=== PATIENT | female | born 1990 | race Hispanic/Latino ===

== ENCOUNTER 2022-02-02 06:55 | Inpatient (IN) | payer MEDICAID, OTHER, SELFPAY ==
[2022-02-02] MEDS ORDERED: Bupivacaine 0.25% HCL 30 ML VIAL ONE (07:00)
[2022-02-02 08:04] VITALS: BMI 30.6
[2022-02-02] MEDS ORDERED: hydrALAZINE 20 MG/ML VIAL SLOW IVP PRN ×3 (08:27→22:12)
[2022-02-02 08:57] LABS: Fetal Membranes Rupture No Membranes Rupture (No Rupture)
[2022-02-02] MEDS: Lactated Ringer's 1,000 ML IV SCH ×2 (10:30→13:49)
[2022-02-02] MEDS ORDERED: Ondansetron PF 4 MG/2 ML Vial IVP PRN ×3 (10:42→22:12)
[2022-02-02] MEDS ORDERED: Promethazine HCl 25 MG/ML VIAL IM PRN ×2 (10:42→15:34)
[2022-02-02] MEDS ORDERED: Lidocaine 1% (PF) 30 ML VIAL SC PRN (10:42)
[2022-02-02] MEDS ORDERED: NS w/ Oxytocin 30 units 500 ML IV SCH ×3 (10:45→22:12)
[2022-02-02 11:21] LABS: Hemoglobin 12.5 g/dL (12.0-15.5); Mean Corpuscular HGB CONC 34.2 g/dL (32.0-36.0); Mean Corpuscular Hemoglobin 30.3 pg (27.0-33.0); Mean Corpuscular Volume 88.6 fl (81.6-98.3); Mean Platelet Volume 13.4 fl (7.4-10.4); Platelet Count 140 10x3/uL (150-450); RBC Distribution Width 13.2 % (11.5-14.5); Red Blood Cell (RBC) Count 4.12 10x6/uL (3.90-5.03); White Blood Cell (WBC) Count 9.6 10x3/uL (3.5-10.5)
[2022-02-02 11:53] LABS: Syphilis Antibody Nonreactive (Nonreactive); Syphilis Antibody Index 0.03 S/CO (<1.00 Non-Reactive)
[2022-02-02 11:54] LABS: Hep B Surf Ag Non-Reactive S/CO (NonReactive)
[2022-02-02 11:58] LABS: HBSAg Index 0.22 S/CO (0-0.99)
[2022-02-02 12:48] LABS: SARS-CoV-2 NAA Rapid Test Not Detected (NotDetected)
[2022-02-02] MEDS ORDERED: Fentanyl 2 mcg/Bup 0.1% Cadd 100 ML ONE (14:09)
[2022-02-02] MEDS ORDERED: ePHEDrine Sulfate 50 MG/10 ML VIAL SLOW IVP PRN (15:34)
[2022-02-02] MEDS ORDERED: Lactated Ringer's 500 ML IV PRN (15:34)
[2022-02-02] MEDS ORDERED: diphenhydrAMINE 50 MG/ML VIAL IVP PRN (15:34)
[2022-02-02] MEDS ORDERED: Naloxone HCl 0.4 mg/ml Vial IVP PRN ×2 (15:34)
[2022-02-02] MEDS ORDERED: Moisturizing Cream (Eucerin) 113 GM JAR TOP PRN (15:34)
[2022-02-02] MEDS ORDERED: Acetaminophen 325 MG TAB PO PRN (15:34)
[2022-02-02] MEDS ORDERED: Communication Order-Pharmacy FS SCH (15:45)
[2022-02-02] MEDS ORDERED: Fentanyl 2 mcg/Bupivacaine 0.1% Cassette 100 ML EPIDURAL SCH (15:45)
[2022-02-02] MEDS ORDERED: Benzocaine-Menthol 82.5 ML CAN TOP PRN (22:12)
[2022-02-02] MEDS ORDERED: Boostrix 0.5 ML (Tdap) VIAL IM ONE (22:12)
[2022-02-02] MEDS ORDERED: Lanolin Ointment 7 GM TUBE TOP PRN (22:12)
[2022-02-02] MEDS ORDERED: Misoprostol 200 MCG TAB VAG PRN (22:12)
[2022-02-02] MEDS ORDERED: Preparation H Ointment 28 GM TUBE PR PRN (22:12)
[2022-02-02] MEDS ORDERED: Milk Of Magnesia 30 ML UDCUP PO PRN (22:12)
[2022-02-02] MEDS: Acetaminophen 325 MG TAB PO SCH (22:12)
[2022-02-02] MEDS ORDERED: Bisacodyl 10 MG SUPP PR PRN (22:12)
[2022-02-02] MEDS ORDERED: Docusate 100 MG CAP PO SCH (22:45)
[2022-02-03] MEDS: Acetaminophen 325 MG TAB PO SCH ×4 (04:47→22:07)
[2022-02-03 04:57] LABS: Hemoglobin 9.8 g/dL (12.0-15.5)
[2022-02-03] MEDS: Docusate 100 MG CAP PO SCH ×2 (09:21→22:07)
[2022-02-03] MEDS: Prenatal Vitamin 1 TAB PO SCH (09:21)
[2022-02-03] MEDS: Ferrous Sulfate 325 MG TAB PO SCH ×2 (09:22→15:51)
[2022-02-04] MEDS: Acetaminophen 325 MG TAB PO SCH ×2 (04:32→10:16)
[2022-02-04 05:07] LABS: Hemoglobin 9.6 g/dL (12.0-15.5); Mean Corpuscular HGB CONC 34.3 g/dL (32.0-36.0); Mean Corpuscular Hemoglobin 31.1 pg (27.0-33.0); Mean Corpuscular Volume 90.6 fl (81.6-98.3); Mean Platelet Volume 13.4 fl (7.4-10.4); Platelet Count 156 10x3/uL (150-450); RBC Distribution Width 13.7 % (11.5-14.5); Red Blood Cell (RBC) Count 3.09 10x6/uL (3.90-5.03)
[2022-02-04 07:23] VITALS: BP 114/73; TEMP 97.6
[2022-02-04] MEDS: Docusate 100 MG CAP PO SCH (09:01)
[2022-02-04] MEDS: Ferrous Sulfate 325 MG TAB PO SCH (09:01)
[2022-02-04] MEDS: Prenatal Vitamin 1 TAB PO SCH (09:01)
== END 2022-02-04 13:17 | disposition home or self-care (01) | DRG 807 ==
LOC: CSHLD/OP 06:55 → CSHLD 11:16 → EDBD 11:16 → CSHPP 23:15
PROVIDERS: ADMIT Obstetrics & Gynecology; ATTEND Obstetrics & Gynecology
PROC: 10E0XZZ Delivery of Products of Conception, External Approach (ICD-10-PCS; principal; 2022-02-02)
PROC: 10907ZC Drainage of Amniotic Fluid, Therapeutic from Products of Conception, Via Natural or Artificial Opening (ICD-10-PCS; 2022-02-02)
PROC: 3E033VJ Introduction of Other Hormone into Peripheral Vein, Percutaneous Approach (ICD-10-PCS; 2022-02-02)
DX: O42.02 Full-term premature rupture of membranes, onset of labor within 24 hours of rupture (principal); Z37.0 Single live birth; Z20.822 Contact with and (suspected) exposure to COVID-19; Z3A.39 39 weeks gestation of pregnancy; Z79.899 Other long term (current) drug therapy; Z88.6 Allergy status to analgesic agent; O70.0 First degree perineal laceration during delivery
CPT/HCPCS: 36415; 51702; 84112; 85014; 85018; 85027; 86780; 86850; 86900; 86901; 87340; 99285; J2590; J7120; S0020; U0002

== ENCOUNTER 2022-02-12 11:36 | Emergency (ER) | payer MEDICAID, SELFPAY ==
[2022-02-12 12:36] LABS: #Eosinphils 0.2 10x3/uL (0.0-0.5); #Monocytes 0.4 10x3/uL (0.0-1.1); #Neutrophils 6.9 10x3/uL (1.5-8.4); %Basophils 0.4 % (0.0-2.0); %Eosinophils 2.7 % (0.0-6.0); %Lymphocytes 15.9 % (18.0-47.0); %Monocytes 4.5 % (0.0-10.0); %Neutrophils 76.2 % (40.0-75.0); Hemoglobin 11.6 g/dL (12.0-15.5); Mean Corpuscular Hemoglobin 30.6 pg (27.0-33.0); Mean Corpuscular Volume 92.9 fl (81.6-98.3); Mean Platelet Volume 10.7 fl (7.4-10.4); Platelet Count 346 10x3/uL (150-450); RBC Distribution Width 13.6 % (11.5-14.5); Red Blood Cell (RBC) Count 3.79 10x6/uL (3.90-5.03)
[2022-02-12 13:06] LABS: ALT (SGPT) 36 U/L (8-55); AST (SGOT) 20 U/L (5-34); Albumin 3.7 g/dL (3.5-5.0); Alkaline Phosphatase 190 U/L (40-110); Anion Gap 12 mmol/L (10-20); BUN (Urea Nitrogen) 12 mg/dL (7.0-18.7); Bilirubin, Total 0.3 mg/dL (0.2-1.2); Calc. Creatinine Clearance 0 mL/min (70-130); Calcium 9.3 mg/dL (7.8-10.44); Carbon Dioxide 25 mmol/L (22-29); Chloride 109 mmol/L (98-107); Estimated GFR 114; Globulin 2.9 g/dL (2.4-3.5); Glucose 89 mg/dL (70-105); Potassium 4.4 mmol/L (3.5-5.1); Protein, Total 6.6 g/dL (6.0-8.3); Sodium 142 mmol/L (136-145)
[2022-02-12 13:16] LABS: Bilirubin Neg (Negative); Blood, Urine 250 (Negative); Clarity Clear (Clear); Glucose, Urine (Dipstick) Normal (Negative); Ketone, Urine Negative (Negative); Leukocyte 100 (Negative); Nitrite Negative (Negative); Protein, Urine (Dipstick) Negative (Neg-Trace); Urobilinogen Normal mg/dL (Less than 2)
[2022-02-12 13:21] LABS: Bacteria/HPF Rare-Few HPF (None Seen); Squamous Epithelial 0-3 HPF (0-3); WBC/HPF 0-3 HPF (0-3)
[2022-02-12] MEDS ORDERED: Iopamidol 300 61% 100 ML VIAL FS ONE (13:34)
[2022-02-12] MEDS ORDERED: cefTRIAXone\\ROCEPHIN 1 GM VIAL ONE (16:34)
== END 2022-02-12 17:55 | disposition home or self-care (01) ==
LOC: CSHERS 11:36
DX: R10.2 Pelvic and perineal pain (principal)
CPT/HCPCS: 36415; 74177; 80053; 81003; 81015; 85025; 86850; 86900; 86901; 96365; J0696; Q9967

== ENCOUNTER 2024-10-05 18:05 | Inpatient (IN) | payer BC ==
[2024-10-05] MEDS ORDERED: Promethazine HCl 25 MG/ML VIAL IM PRN (18:58)
[2024-10-05] MEDS ORDERED: Lidocaine 1% (PF) 30 ML VIAL SC PRN (18:58)
[2024-10-05] MEDS ORDERED: Methylergonovine 0.2 MG/ML VIAL IM PRN (18:58)
[2024-10-05] MEDS ORDERED: Diphenoxylate HCl/Atropine Tablet PO PRN (18:58)
[2024-10-05] MEDS ORDERED: Ibuprofen 800 MG TAB PO PRN (18:58)
[2024-10-05] MEDS ORDERED: fentaNYL 50 mcg/mL 1 mL Vial SLOW IVP PRN (18:58)
[2024-10-05] MEDS ORDERED: Butorphanol Tartrate 1 MG/ML VIAL SLOW IVP PRN (18:58)
[2024-10-05] MEDS ORDERED: Carboprost 250 MCG/ML AMP IM PRN (18:58)
[2024-10-05] MEDS ORDERED: HYDROcodone/Acetaminophen 5/325 mg Tablet PO PRN (18:58)
[2024-10-05] MEDS ORDERED: Acetaminophen 500 MG TAB PO PRN (18:58)
[2024-10-05] MEDS ORDERED: Ondansetron PF 4 MG/2 ML Vial IVP PRN (18:58)
[2024-10-05] MEDS ORDERED: Tranexamic Acid 1,000 MG/10 ML VIAL IVP PRN (18:58)
[2024-10-05] MEDS ORDERED: hydrALAZINE 20 MG/ML VIAL SLOW IVP PRN (18:58)
[2024-10-05] MEDS ORDERED: Misoprostol 200 MCG TAB PR PRN (18:58)
[2024-10-05] MEDS ORDERED: Oxytocin 30 units/NS 500 ML 500 ML IV SCH ×3 (19:00)
[2024-10-05] MEDS: Lactated Ringer's 1,000 ML IV SCH (19:55)
[2024-10-05 20:10] LABS: Mean Corpuscular HGB CONC 34.2 g/dL (32.0-36.0); Mean Corpuscular Hemoglobin 31.3 pg (27.0-33.0); Mean Corpuscular Volume 91.3 fL (81.6-98.3); Mean Platelet Volume 12.6 fL (7.4-10.4); Platelet Count 153 10x3/uL (150-450); Red Blood Cell (RBC) Count 4.16 10x6/uL (3.90-5.03); White Blood Cell (WBC) Count 7.93 10x3/uL (3.5-10.5)
[2024-10-05 20:11] VITALS: BMI 29.2
[2024-10-05 20:29] LABS: ALT (SGPT) 20 U/L (Less than 34); AST (SGOT) 24 U/L (11-34); Albumin 3.1 g/dL (3.1-4.5); Alkaline Phosphatase 210 U/L (40-110); Anion Gap 15 mmol/L (10-20); BUN (Urea Nitrogen) 7 mg/dL (7.0-18.7); Bilirubin, Total 0.4 mg/dL (0.3-1.2); Calc. Creatinine Clearance 185 mL/min (70-130); Calcium 8.5 mg/dL (7.8-10.44); Carbon Dioxide 17 mmol/L (22-29); Chloride 110 mmol/L (98-107); Estimated GFR 127; Globulin 3.2 g/dL (2.4-3.5); Glucose 67 mg/dL (70-105); Potassium 3.7 mmol/L (3.5-5.1); Protein, Total 6.3 g/dL (6.0-8.3); Sodium 138 mmol/L (136-145)
[2024-10-05] MEDS: Misoprostol 100 MCG TAB VAG SCH (20:30)
[2024-10-05 20:50] LABS: HBsAg Index 0.23 S/CO (0-0.99); Hep B Surf Ag - L&D Non-Reactive S/CO (NonReactive)
[2024-10-05 20:51] LABS: Syphilis Antibody Nonreactive (Nonreactive); Syphilis Antibody Index 0.04 S/CO (<1.00 Non-Reactive)
[2024-10-06] MEDS ORDERED: Bupivacaine 0.25% HCL 30 ML VIAL ONE (07:00)
[2024-10-06] MEDS: fentaNYL 2 mcg/Ropivacaine 0.2% Epidural 100 ML CADD EPIDURAL SCH (12:00)
[2024-10-06] MEDS ORDERED: Naloxone HCl 0.4 mg/ml Vial IVP PRN ×2 (14:34)
[2024-10-06] MEDS ORDERED: diphenhydrAMINE 50 MG/ML VIAL IVP PRN (14:34)
[2024-10-06] MEDS ORDERED: Moisturizing Cream (Eucerin) 113 GM JAR TOP PRN (14:34)
[2024-10-06] MEDS ORDERED: Promethazine HCl 25 MG/ML VIAL IM PRN (14:34)
[2024-10-06] MEDS ORDERED: ePHEDrine Sulfate 50 MG/10 ML VIAL SLOW IVP PRN (14:34)
[2024-10-06] MEDS ORDERED: Ibuprofen 800 MG TAB PO PRN (14:43)
[2024-10-06] MEDS ORDERED: Communication Order-Pharmacy FS SCH (14:45)
[2024-10-06] MEDS ORDERED: diphenhydrAMINE 25 MG CAP PO PRN (15:47)
[2024-10-06] MEDS ORDERED: Milk Of Magnesia 30 ML UDCUP PO PRN (15:47)
[2024-10-06] MEDS ORDERED: Boostrix 0.5 ML (Tdap) VIAL (>/=7 yrs of age) IM ONE (15:47)
[2024-10-06] MEDS ORDERED: Bisacodyl 10 MG SUPP PR PRN (15:47)
[2024-10-06] MEDS ORDERED: Lanolin Ointment 7 GM TUBE TOP PRN (15:47)
[2024-10-06] MEDS ORDERED: hydrALAZINE 20 MG/ML VIAL SLOW IVP PRN (15:47)
[2024-10-06] MEDS ORDERED: Ondansetron PF 4 MG/2 ML Vial IVP PRN (15:47)
[2024-10-06] MEDS: Lactated Ringer's 500 ML IV PRN (17:05)
[2024-10-06] MEDS: Ondansetron PF 4 MG/2 ML Vial IVP PRN (17:17)
[2024-10-06] MEDS: Carboprost 250 MCG/ML AMP ONE (18:04)
[2024-10-06] MEDS: Oxytocin 30 units/NS 500 ML 500 ML ONE ×2 (18:04→19:24)
[2024-10-06] MEDS: Methylergonovine 0.2 MG/ML VIAL ONE ×2 (18:17→19:23)
[2024-10-06] MEDS: Ferrous Sulfate 325 MG TAB PO SCH (19:22)
[2024-10-06] MEDS: fentaNYL/Ropivacaine Epidural 100 ML ONE (19:22)
[2024-10-06] MEDS: Tranexamic Acid 1,000 MG/10 ML VIAL ONE (19:23)
[2024-10-06] MEDS: Misoprostol 200 MCG TAB ONE (19:23)
[2024-10-06] MEDS: Docusate 100 MG CAP PO SCH (19:26)
[2024-10-06] MEDS: HYDROcodone/Acetaminophen 5/325 mg Tablet PO PRN (19:40)
[2024-10-06] MEDS ORDERED: Ibuprofen 800 MG TAB PO SCH (22:00)
[2024-10-07] MEDS: Prenatal Vitamin 1 TAB PO SCH (07:42)
[2024-10-07 09:41] LABS: Hematocrit 28.8 % (34.9-44.5); Hemoglobin 9.7 g/dL (12.0-15.5); Mean Corpuscular HGB CONC 33.7 g/dL (32.0-36.0); Mean Corpuscular Hemoglobin 31.7 pg (27.0-33.0); Mean Corpuscular Volume 94.1 fL (81.6-98.3); Mean Platelet Volume 12.4 fL (7.4-10.4); Platelet Count 137 10x3/uL (150-450); RBC Distribution Width 13.2 % (11.5-14.5); Red Blood Cell (RBC) Count 3.06 10x6/uL (3.90-5.03); White Blood Cell (WBC) Count 10.72 10x3/uL (3.5-10.5)
[2024-10-07 09:59] LABS: D-Dimer Test 9.74 mcg/mL (0.19-0.50); PTT 27.3 sec (22.0-33.0); Prothrombin Time 10.6 sec (9.5-12.1)
[2024-10-07] MEDS: Acetaminophen 325 MG TAB PO PRN (10:51)
[2024-10-07 11:29] VITALS: BP 90/55; TEMP 98.7
== END 2024-10-07 18:25 | disposition home or self-care (01) | DRG 807 ==
LOC: CSHLD 18:05 → CSHPP 10-06 17:55
PROVIDERS: ADMIT Family Medicine; ATTEND Family Medicine
PROC: 10907ZC Drainage of Amniotic Fluid, Therapeutic from Products of Conception, Via Natural or Artificial Opening (ICD-10-PCS; principal; 2024-10-06)
PROC: 10E0XZZ Delivery of Products of Conception, External Approach (ICD-10-PCS; 2024-10-06)
PROC: 3E0P7VZ Introduction of Hormone into Female Reproductive, Via Natural or Artificial Opening (ICD-10-PCS; 2024-10-06)
DX: O24.429 Gestational diabetes mellitus in childbirth, unspecified control (principal); Z37.0 Single live birth; Z3A.39 39 weeks gestation of pregnancy; O09.523 Supervision of elderly multigravida, third trimester; Z88.8 Allergy status to other drugs, medicaments and biological substances; Z79.899 Other long term (current) drug therapy
CPT/HCPCS: 36415; 36416; 51702; 80053; 85027; 85049; 85300; 85362; 85384; 85610; 85730; 86780; 86850; 86900; 86901; 87340; J0665; J2210; J2405; J2590; J3490; J7120